=== PATIENT | female | born 1975 | race Caucasian/White ===

== ENCOUNTER 2018-06-26 10:02 | Observation (INO) | payer OTHER ==
[2018-06-26] MEDS ORDERED: ceFAZolin 2 GM/DEXTROSE 100 ML IV ONE (10:15)
[2018-06-26] MEDS ORDERED: PHENAZOPYRIDINE HCL 200 MG TAB PO ONE (10:15)
[2018-06-26] MEDS ORDERED: ACETAMINOPHEN 500 MG TAB PO ONE (10:15)
[2018-06-26] MEDS ORDERED: GABAPENTIN 300 MG CAP PO ONE (10:15)
[2018-06-26] MEDS ORDERED: LR 1,000 ML IV ONE (10:18)
[2018-06-26] MEDS ORDERED: LIDOCAINE 1% 2 ML INJ ID PRN (10:18)
[2018-06-26] MEDS ORDERED: BUPIVACAINE/EPI 0.5% 30 ML SDV ONE ×3 (10:42→14:01)
--- NOTE | 2018-06-26 12:24 | PDHPUP ---
History & Physical Update H&P update statement: This history and physical update is based on an assessment of the patient which was completed after admission or registration (within 24 hours), but prior to the surgery/procedure. H&P update: H&P reviewed & patient examined, no change in patient's condition since H&P completed
[2018-06-26] MEDS ORDERED: MIDAZOLAM 2 MG/2 ML VIAL IVP ONE (12:28)
--- NOTE | 2018-06-26 12:28 | PDANEPAE ---
ANE History of Present Illness Endometriosis, here for robotic assist in removal of lesions and poss hys ANE Past Medical History - Cardiovascular History Hx Hypertension: No Hx Arrhythmias: No Hx Chest Pain: No Hx Coronary Artery / Peripheral Vascular Disease: No Hx CHF / Valvular Disease: No Hx Palpitations: No - Pulmonary History Hx COPD: No Hx Asthma/Reactive Airway Disease: No Hx Recent Upper Respiratory Infection: No Hx Oxygen in Use at Home: No Hx Sleep Apnea: Yes Sleep Apnea Screening Result - Last Documented: Positive Pulmonary History Comment: VOCAL CORD DYSFUNCTION - Neurologic History Hx Cerebrovascular Accident: No Hx Seizures: No Hx Dementia: No Neurologic History Comment: MIGRAINES - Endocrine History Hx Diabetes: No Endocrine History Comment: HYPOTHYROID - Renal History Hx Renal Disorders: No - Liver History Hx Hepatic Disorders: No - Neurological & Psychiatric Hx Hx Neurological and Psychiatric Disorders: No - Cancer History Hx Cancer: No - Congenital Disorder History Hx Congenital Disorders: No - GI History Hx Gastrointestinal Disorders: No Gastrointestinal History Comment: VOCAL CORD DYSFUNCTION W/REFLUX - Other Health History Other Health History: NEG - Chronic Pain History Chronic Pain: Yes (ENDOMETRIOSIS PAIN) - Surgical History Prior Surgeries: 2003 SINUS SURG. 2007- LEEP PROC. 2005 OOPHERECTOMY. WISDOM TEETH ANE Review of Systems Review of Systems: - Exercise capacity METS (RN): 4 METS ANE Patient History - Allergies Allergies/Adverse Reactions: morphine Allergy (Verified 06/26/18 10:30) Hives - Home Medications Home Medications: Astelin 06/19/18 [Last Taken 06/25/18] Desvenlafaxine 06/19/18 [Last Taken 06/25/18] Herbals/Supplements -Info Only 06/19/18 [Last Taken 06/16/18] Levothyroxine 06/19/18 [Last Taken 06/26/18 07:00] Liothyronine Sodium 06/19/18 [Last Taken 06/26/18 07:00] Magnesium 06/19/18 [Last Taken 06/25/18] Naproxen 06/19/18 [Last Taken 06/21/18] Nexium 06/19/18 [Last Taken 06/25/18] Tramadol HCl 06/19/18 [Last Taken Unknown] - NPO status NPO Since - Liquids (Date): 06/26/18 NPO Since - Liquids (Time): 08:25 NPO Since - Solids (Date): 06/25/18 NPO Since - Solids (Time): 22:00 - Smoking Hx Smoking Status: Never smoked - Family Anes Hx Family Hx Anesthesia Complications: NEG ANE Labs/Vital Signs - Vital Signs Blood Pressure: 153/97 Heart Rate: 89 Respiratory Rate: 18 O2 Sat (%): 95 Height: 167.64 cm Weight: 92.986 kg ANE Physical Exam - Airway Neck exam: FROM Mallampati Score: Class 1 Mouth exam: normal dental/mouth exam - Pulmonary Pulmonary: no respiratory distress, no rales or rhonchi - Cardiovascular Cardiovascular: regular rate and rhythym, no murmur, rub, or gallop - ASA Status ASA Status: II ANE Anesthesia Plan Anesthesia Plan: general endotracheal anesthesia Total IV Anesthesia: No
[2018-06-26] MEDS ORDERED: PROPOFOL 200 MG/20 ML VIAL ONE (12:51)
[2018-06-26] MEDS ORDERED: LIDOCAINE 2% 100 MG/5 ML SYR ONE (12:51)
[2018-06-26] MEDS ORDERED: ROCURONIUM 50 MG/5 ML VIAL ONE ×2 (12:51→13:59)
[2018-06-26] MEDS ORDERED: fentaNYL 250 MCG/5 ML INJ ONE (12:51)
[2018-06-26] MEDS ORDERED: SUGAMMADEX SODIUM 200 MG/2 ML VIAL IVP ONE (13:59)
[2018-06-26] MEDS ORDERED: KETOROLAC 30 MG/1 ML SDV ONE (13:59)
[2018-06-26] MEDS ORDERED: ONDANSETRON 4 MG/2 ML VIAL ONE (13:59)
[2018-06-26] MEDS ORDERED: DEXAMETHASONE 4 MG/ML VIAL ONE (13:59)
[2018-06-26] MEDS ORDERED: HYDROmorphONE/DILAUDID 2 MG/ML INJ ONE ×2 (14:00→14:36)
[2018-06-26] MEDS ORDERED: PROMETHAZINE HCL 25 MG/ML INJ IVP PRN ×2 (14:10→14:24)
[2018-06-26] MEDS ORDERED: MEPERIDINE 25 MG/0.5 ML AMP IVP PRN (14:10)
[2018-06-26] MEDS ORDERED: NALOXONE HCL 0.4 MG/ML INJ IVP PRN (14:10)
[2018-06-26] MEDS ORDERED: LR 500 ML IV PRN (14:10)
[2018-06-26] MEDS ORDERED: DIAZEPAM 5 MG/ML 1 ML SYR IVP PRN (14:10)
[2018-06-26] MEDS ORDERED: fentaNYL 100 MCG/2 ML INJ IVP PRN (14:10)
[2018-06-26] MEDS ORDERED: oxyCODONE IR 5 MG TAB PO PRN (14:10)
[2018-06-26] MEDS ORDERED: HYDROmorphONE/DILAUDID 1 MG/ML INJ IVP PRN (14:24)
--- NOTE | 2018-06-26 14:24 | POSTOPPROG ---
Post Op Note Date of Operation: 06/26/18 Surgeon: Kranthi Lawrence Landman: Marisa Motta Anesthesia: GET(General Endotracheal) Pre-op Diagnosis: Endometriosis Post-op Diagnosis: Same Procedure: Robotic hyst/LSO, excise endo, bilat ureterolysis, cysto Findings: No bladder or urethral injury Inf/Abcess present in the surg proc area at time of surgery?: No EBL: Minimal Complications: None
[2018-06-26] MEDS ORDERED: ONDANSETRON DISINTEGRATING 4 MG TAB PO PRN (14:25)
[2018-06-26] MEDS ORDERED: LR 1,000 ML IV SCH (14:30)
--- NOTE | 2018-06-26 14:37 | POSTANESTH ---
Post Anesthetic Evaluation Cardiovascular Status: Normal, Stable Respiratory Status: Normal, Stable Level of Consciousness/Mental Status: Can Participate in Eval, Alert and Oriented, Other, See Comment (Sad, but warm and not in pain no nausea. Seemed comfortable other than tears) Pain Control: Adequate, Prn Tx Ordered Nausea/Vomiting Control: Adequate, Prn Tx Ordered Complications Possibly Related to Anesthesia: None Noted
[2018-06-26] MEDS: HYDROmorphONE/DILAUDID 2 MG/ML INJ IVP PRN ×3 (14:38→15:17)
[2018-06-26] MEDS ORDERED: DIAZEPAM 5 MG/ML 1 ML SYR ONE (15:12)
--- NOTE | 2018-06-26 15:17 | GOP ---
[f rep st] OPERATIVE REPORT DATE OF OPERATION: 06/26/2018 SURGEON: Kranthi Lawrence MD STATISTICAL MACHINE MECHANIC: Marisa Motta CFA. ANESTHESIA: General. PREOPERATIVE DIAGNOSIS: 1. Endometriosis. 2. Dysmenorrhea. 3. Second-degree uterine prolapse. 4. Urinary frequency and urgency. POSTOPERATIVE DIAGNOSIS: 1. Endometriosis. 2. Dysmenorrhea. 3. Second-degree uterine prolapse. 4. Urinary frequency and urgency. PROCEDURE PERFORMED: 1. Robotic-assisted total laparoscopic hysterectomy, left salpingo-oophorectomy. 2. Excision of endometriosis in the anterior and posterior cul-de-sac, bilateral pelvic side huitron. 3. Uterosacral ligament colpopexy. 4. Bilateral ureterolysis. 5. Cystoscopy. FINDINGS: SPECIMENS: 1. Uterus, left tube and ovary. 1. Pelvic peritoneum with endometriosis. 2. ESTIMATED BLOOD LOSS: 20 mL. DESCRIPTION OF PROCEDURE: The patient was taken to the operating room where she was identified. Gen eral anesthesia was administered and found to be adequate. She was placed in the lithotomy position and prepared and draped in normal sterile fashion. A [employer] uterine manipulator was placed into the e ndometrial cavity and sutured to the cervix. A Jeong catheter was then placed. An 8 mm infraumbilical incision was made with a scalpel. The Veress needle with the CO2 gas flowing was advanced into the peritoneal cavity. The abdomen was then insufflated with carbon dioxide gas. The 8 mm trocar, followed by the laparoscope were then inserted. The upper abdomen was unremarkable. There was no endometriosis seen on either diaphragm, liver, stomach, gallbladder, or upper abdomina l bowel. Two lateral ports placed on the right, 1 on the left under direct visualization. She then was placed in Trendelenburg position and the da Natasha robot docked on the left side. The instruments were then brought into the abdominal cavity under direct visualization. She had endometriosis in the anterior and posterior cul-de-sac, bilateral pelvic sidewalls, as well a s on the left adnexa. The left adnexa were adherent to the left pelvic sidewall near the ureter, as well as to the sigmoid colon. The right tube and ovary were surgically absent. The adhesions of the bowel to the left adnexa and pelvic brim were taken down sharply. The left round ligament was divid ed. The anterior leaf of the broad ligament was then incised toward the bifurcation of the left comm on iliac vessels. A left ureterolysis was required. The peritoneum at the pelvic brim was incised. The ureter was gently dissected free and lateralized off the overlying peritoneum and endometriosis from the pelvic brim down to the bladder. Once this was accomplished, the entire left pelvic sidewal l peritoneum was completely excised. The left infundibulopelvic vessels were then cauterized and tra nsected. The anterior leaf of the broad ligament was then incised over the left uterine vessels and across the cervix. The left uterine vasculature was then cauterized and transected. The right round ligament was divided. The right uterine vasculature was then cauterized and transect ed. The posterior cul-de-sac peritoneum from the distal rectum up to the cervix and laterally to the uter osacral ligaments was then completely excised. She required a right ureterolysis as well given the e ndometriosis overlying the right ureter. The peritoneum at the pelvic brim on the right was incised. The ureter was gently dissected free and lateralized off the overlying peritoneum and endometriosis from the pelvic brim down to the bladder. The right pelvic sidewall peritoneum was then completely excised. A circumferential colpotomy incision was then made with the hot neymar and all specimens we re removed through the vagina. The anterior cul-de-sac peritoneum was, likewise, excised and removed . The vaginal cuff was closed with a running suture of 0 V-Loc 180. A bilateral uterosacral ligament c olpopexy was performed by attaching the lateral aspects of the vaginal cuff to the ipsilateral uteros acral ligaments near the coccygeal-sacrospinous ligament complexes. The pelvis was then irrigated wi th sterile saline, and hemostasis was present. The robot was then undocked. The skin was closed wit h 4-0 Monocryl and Steri-Strips. Cystoscopy was then performed. Both ureters had vigorous jets of urine. There was no evidence of bl adder, nor urethral injury seen. No obvious pathology was seen to account for the patient's urinary frequency and urgency, other than her endometriosis on the peritoneal side of the bladder. Anesthesi a was then reversed and patient taken the PACU awake, in stable condition. COMPLICATIONS: None. DISPOSITION: Patient stable to PACU. /[id number]/MODL
[2018-06-26] MEDS: GABAPENTIN 300 MG CAP PO SCH ×2 (16:26→22:21)
[2018-06-26] MEDS: HYDROCODONE/APAP 5/325 TAB PO PRN ×2 (16:31→17:55)
[2018-06-26] MEDS: KETOROLAC 30 MG/1 ML SDV IVP SCH (19:06)
[2018-06-26] MEDS: SIMETHICONE 80 MG TAB CHEW PO SCH ×2 (19:06→22:21)
[2018-06-26] MEDS: ONDANSETRON 4 MG/2 ML VIAL IVP PRN (20:25)
[2018-06-26] MEDS: DOCUSATE SODIUM 100 MG CAP PO SCH (22:21)
[2018-06-26] MEDS: OXYCODONE/APAP 5/325 TAB PO PRN (22:21)
[2018-06-27] MEDS: KETOROLAC 30 MG/1 ML SDV IVP SCH ×2 (01:11→07:46)
[2018-06-27] MEDS: OXYCODONE/APAP 5/325 TAB PO PRN ×4 (02:37→10:28)
[2018-06-27] MEDS: ONDANSETRON 4 MG/2 ML VIAL IVP PRN ×2 (02:41→06:46)
[2018-06-27 06:11] LABS: PLATELET COUNT 277 10^3/uL (150-400)
[2018-06-27 07:44] VITALS: BP 118/74
[2018-06-27] MEDS: DOCUSATE SODIUM 100 MG CAP PO SCH (07:46)
[2018-06-27] MEDS: GABAPENTIN 300 MG CAP PO SCH (10:14)
[2018-06-27] MEDS: SIMETHICONE 80 MG TAB CHEW PO SCH (10:25)
--- NOTE | 2018-06-28 10:19 | GDS ---
[f rep st] DISCHARGE SUMMARY DISCHARGE DIAGNOSES: 1. Endometriosis. 2. Pelvic pain. PROCEDURES: 1. Robotic-assisted total laparoscopic hysterectomy, left salpingo salpingo-oophorectomy. 2. Excision of endometriosis. 3. Uterosacral ligament colpopexy. 4. Bilateral ureterolysis. 5. Cystoscopy. HISTORY: The patient has a long history of pelvic pain, secondary to endometriosis. She was taken t o the operating room on 06/26/2018, where she underwent the above-mentioned procedure without complic ations. Her postoperative course was uneventful. The morning after surgery, she was ambulating, voiding, and tolerating a general diet. She was discharged home on postoperative day #1 in good condition. Medi cations, included Percocet and ibuprofen for pain, Zofran for nausea, and estradiol 1 mg for hormone replacement. She is to follow up in the office 2 weeks after discharge. /[id number]/MODL
== END 2018-06-27 11:40 | disposition home or self-care (01) ==
LOC: FSGY 10:02 → F3N 14:25 → FOB 15:56
PROVIDERS: ADMIT Obstetrics & Gynecology; ATTEND Obstetrics & Gynecology
DX: N80.0 Endometriosis of uterus (principal); N80.3 Endometriosis of pelvic peritoneum; R35.0 Frequency of micturition; R39.15 Urgency of urination; G47.30 Sleep apnea, unspecified; E03.9 Hypothyroidism, unspecified; G43.909 Migraine, unspecified, not intractable, without status migrainosus
CPT/HCPCS: 57425; 58571; 58662; G0378; J0690; J1100; J1170; J1885; J2001; J2250; J2405; J2704; J3010; J3360